=== PATIENT | male | born 1995 | race African-American/Black ===

== ENCOUNTER 2019-01-15 13:29 | Emergency (ER) | payer OTHER ==
[~2019-01-15] VITALS: Ht 172.7 cm; Wt 81.6 kg
[~2019-01-15 13:29] MED LIST: AUGMENTIN 875-875 MG PO; AUGMENTIN 875875 MG PO; HYDROCODONE BIT1 T11 PO; MOTRIN600 MG PO; MOTRIN800 MG PO; Motrin,Rufen800 MG PO
[2019-01-15] MEDS ORDERED: CEPHALEXIN500 M1 PO (14:57)
[2019-01-15] MEDS ORDERED: ANTIBIOTIC28.4 GM T (14:57)
== END 2019-01-15 15:01 | disposition home or self-care (01) ==
LOC: ED 13:29
DX: S61.211A Laceration without foreign body of left index finger without damage to nail, initial encounter (principal); Z23 Encounter for immunization; Z87.891 Personal history of nicotine dependence; W26.0XXA Contact with knife, initial encounter; Y93.89 Activity, other specified; Y92.89 Other specified places as the place of occurrence of the external cause; Y99.0 Civilian activity done for income or pay

== ENCOUNTER 2020-04-05 11:20 | Emergency (ER) | payer SELFPAY ==
[~2020-04-05] VITALS: Wt 83.9 kg
[~2020-04-05 11:20] MED LIST changes: +ANTIBIOTIC28.4 GM T; +CEPHALEXIN500 M1 PO
[2020-04-05] MEDS ORDERED: AMOXICILLIN875 MG PO (11:43)
[2020-04-05] MEDS ORDERED: Motrin,Rufen800 MG PO (11:43)
== END 2020-04-05 14:55 | disposition home or self-care (01) ==
LOC: ED 11:20
DX: K08.89 Other specified disorders of teeth and supporting structures (principal); F17.200 Nicotine dependence, unspecified, uncomplicated; Z98.890 Other specified postprocedural states

== ENCOUNTER 2020-08-03 02:44 | Emergency (ER) | payer SELFPAY ==
[~2020-08-03] VITALS: Ht 172.7 cm; Wt 81.6 kg
[~2020-08-03 02:44] MED LIST changes: +AMOXICILLIN875 MG PO
== END 2020-08-03 06:24 | disposition home or self-care (01) ==
LOC: ED 02:44
DX: S01.81XA Laceration without foreign body of other part of head, initial encounter (principal); M24.412 Recurrent dislocation, left shoulder; F10.129 Alcohol abuse with intoxication, unspecified; Y04.0XXA Assault by unarmed brawl or fight, initial encounter; Y93.89 Activity, other specified; Y92.89 Other specified places as the place of occurrence of the external cause; Y99.9 Unspecified external cause status; Y90.9 Presence of alcohol in blood, level not specified

== ENCOUNTER 2022-02-08 12:24 | Emergency (ER) | payer BC ==
[~2022-02-08] VITALS: Wt 88.5 kg
== END 2022-02-08 13:57 | disposition home or self-care (01) ==
LOC: ED 12:24
DX: T15.91XA Foreign body on external eye, part unspecified, right eye, initial encounter (principal); Z87.891 Personal history of nicotine dependence; W22.8XXA Striking against or struck by other objects, initial encounter; Y93.89 Activity, other specified; Y92.89 Other specified places as the place of occurrence of the external cause; Y99.8 Other external cause status

== ENCOUNTER 2024-01-08 16:23 | Emergency (ER) | payer BC, OTHER ==
[~2024-01-08] VITALS: Wt 83.9 kg
== END 2024-01-08 18:48 | disposition home or self-care (01) ==
LOC: ED 16:23
DX: S01.81XA Laceration without foreign body of other part of head, initial encounter (principal); S86.911A Strain of unspecified muscle(s) and tendon(s) at lower leg level, right leg, initial encounter; R42 Dizziness and giddiness; V85.5XXA Driver of special construction vehicle injured in nontraffic accident, initial encounter; Y93.I9 Activity, other involving external motion; Y92.488 Other paved roadways as the place of occurrence of the external cause; Y99.8 Other external cause status

== ENCOUNTER 2024-07-17 17:14 | Emergency (ER) | payer BC ==
[~2024-07-17] VITALS: Ht 172.7 cm; Wt 86.2 kg
[2024-07-17] MEDS ORDERED: SODIUM CHLORIDE 0.9% 1,000 ML IV ONE (17:55)
[2024-07-17] MEDS ORDERED: Ondansetron Hydrochloride 4 MG/2 ML VIAL IV ONE (17:55)
[2024-07-17] MEDS ORDERED: fentaNYL CITRATE/PF 50 MCG/ML SYRINGE IV ONE (17:55)
[2024-07-17 18:05] LABS: MEAN CELL VOLUME 95.9 fl (80.0-94.0); MEAN CORPUSCULAR HGB 32.7 pg (27.0-31.0); MEAN CORPUSCULAR HGB CONC 34.1 g/dl (33.0-37.0); MEAN PLATELET VOLUME 9.9 fl (9.6-12.3); PLATELET COUNT AUTOMATED 305 10*3/uL (130-400); RED BLOOD COUNT 4.59 10*6/uL (4.50-5.90); WHITE BLOOD COUNT 10.7 10*3/uL (4.8-10.8)
[2024-07-17 18:09] LABS: MANUAL DIFF REFLEX YES
[2024-07-17 18:37] LABS: ALKALINE PHOSPHATASE 65 U/L (46-116); BUN 9 mg/dl (9-23); CHLORIDE 103 mmol/L (98-107); POTASSIUM 3.9 mmol/L (3.4-5.1); SGPT/ALT 32 U/L (5-49); TOTAL PROTEIN 8.2 gm/dL (6.0-8.0)
[2024-07-17] MEDS ORDERED: Ketorolac Tromethamine 15 MG/ML VIAL IV ONE (18:50)
[2024-07-17 18:54] LABS: PLATELET SUFFICIENCY NORMAL (NORMAL); TOTAL CELLS COUNTED 100 #CELLS
[2024-07-17] MEDS ORDERED: FLOMAX0.4 MG PO (19:25)
[2024-07-17] MEDS ORDERED: Ondansetron4 MG PO (19:25)
[2024-07-17] MEDS ORDERED: HYDROCODONE-AC1 EACH PO (19:25)
[2024-07-17] MEDS ORDERED: Tamsulosin Hydrochloride 0.4 MG CAP PO ONE (19:25)
[2024-07-17] MEDS ORDERED: Ketorolac Tromethamine 10 MG TAB PO ONE (19:55)
[2024-07-17] MEDS ORDERED: Ondansetron Hydrochloride 4 MG TAB PO ONE (19:55)
== END 2024-07-17 20:22 | disposition home or self-care (01) ==
LOC: ED 17:14
PROVIDERS: Nurse Practitioner Family
DX: N20.1 Calculus of ureter (principal); R11.10 Vomiting, unspecified; Z87.891 Personal history of nicotine dependence